=== PATIENT | female | born 1980 | race Caucasian/White ===

== ENCOUNTER 2020-04-07 17:28 | Observation (INO) | payer SELFPAY ==
[~2020-04-07] VITALS: Ht 175.3 cm; Wt 66.0 kg
[~2020-04-07 17:28] MED LIST: CEPHALEXIN500 MG PO; DOXYCYCL HYC100 MG PO; ULTRAM50 M1 PO
--- NOTE | 2020-04-07 17:38 | NUR ---
PT AMB TO ROOM WITH STEADY GAIT FOR TRIAGE
--- NOTE | 2020-04-07 17:45 | NUR ---
PT ASSESSED. PT AO X 3. SKIN PINK WARM AND DRY. REPORTS LOWER ABDOMINAL TENDERNESS FOR TWO DAYS. SMALL STOOL THIS MORNING. DENIES VOMITING AND DIARRHEA. ABD SOFT, TENDER TO PALPATION. ACTIVE BOWEL SOUNDS
--- NOTE | 2020-04-07 18:31 | NUR ---
DARYN PENA ATTEMPTING TO START IV AND DRAW LABS.
[2020-04-07 19:00] LABS: HEMATOCRIT 46.6 % (37.0-47.0); HEMOGLOBIN 15.7 g/dl (12.0-16.0); IMMATURE GRANULOCYTES 0.7 % (0.0-5.0); MEAN CELL VOLUME 86.1 fL CALC (80.0-100.0); MEAN CORPUSCULAR HGB CONC 33.7 g/dL CAL (32.0-36.0); NEUT# 16.77 thou/uL (2.00-7.15); RED BLOOD COUNT 5.41 mill/uL (4.20-5.60); RED CELL DISTRI WIDTH 12.2 % (11.5-15.5)
--- NOTE | 2020-04-07 19:07 | NUR ---
REPORT GIVEN TO SHANA SERNA
--- NOTE | 2020-04-07 19:13 | NUR ---
C/O NAUSEA. PROVIDER NOTIFIED.
[2020-04-07 19:27] LABS: ALBUMIN 4.6 g/dL (3.2-5.0); ALKALINE PHOSPHATASE 118 u/l (38-126); ANION GAP 15 (6-22 (CALC)); BILIRUBIN, TOTAL 1.5 mg/dL (0.0-1.4); BUN 16 mg/dL (7-17); BUN/CREATININE RATIO 26 (12-20 (CALC)); CARBON DIOXIDE 21 mmol/l (22-30); CHLORIDE 104 mmol/l (95-108); CREATININE 0.6 mg/dL (0.5-1.0); GFR > 60 ML/MIN (>=60 (CALC)); GFR FOR AFR.AMER. > 60 ML/MIN (>=60 (CALC)); LIPASE 17 u/l (23-300); POTASSIUM 4.2 mmol/l (3.5-5.1); SGOT/AST 36 u/l (14-36); SODIUM 137 mmol/l (137-146)
--- NOTE | 2020-04-07 19:31 | NUR ---
PT UP TO BR TO VOID...SAMPLE COLLECTED.
[2020-04-07 19:43] LABS: URINE BILIRUBIN - DIPSTICK NEGATIVE (NEGATIVE); URINE BLOOD DIPSTICK LARGE (NEGATIVE); URINE COLOR AMBER; URINE GLUCOSE - DIPSTICK NEGATIVE (NEGATIVE); URINE KETONE 15 mg/dL (NEGATIVE); URINE LEUK ESTERASE TRACE (NEGATIVE); URINE NITRITE - DIPSTICK POSITIVE (Negative); URINE PH 5.5 (4.5-8.0); URINE PROTEIN - DIPSTICK 100 mg/dL (NEG-TRACE); URINE SPECIFIC GRAVITY >=1.030
[2020-04-07 19:51] LABS: URINE RBC 50-100 RBC/hpf (0-5); URINE SQUAMOUS EPITHELIAL CELL FEW EPI/hpf (0-FEW)
--- NOTE | 2020-04-07 22:46 | NUR ---
DRINKING SECOND CUP OF CONTRAST.
--- NOTE | 2020-04-07 23:00 | NUR ---
PT RESTING. VSS. AWAITING DISPO. RESTING.
--- NOTE | 2020-04-08 01:30 | NUR ---
PT RETURNED. UP TO BR TO VOID. C/O PAIN 12/14. DR NOTIFIED.
--- NOTE | 2020-04-08 02:12 | NUR ---
AT BEDSIDE TO DISCUSS RESULTS.
[2020-04-08] MEDS ORDERED: KEFLEX500 M1 PO ×2 (02:14)
[2020-04-08] MEDS ORDERED: ONDANSETRON4 MG PO ×2 (02:14)
--- NOTE | 2020-04-08 02:17 | NUR ---
DR HICKEY AT BEDSIDE TO DISCUSS RESULTS OF CT.
--- NOTE | 2020-04-08 02:58 | NUR ---
REPORT TO JOHNNY NURSE/MED-SURG.
--- NOTE | 2020-04-08 03:00 | NUR ---
TO FLOOR VIA WHEELCHAIR. TOLERATED WELL. VSS. FLAGYL INFUSING VIA PUMP.
--- NOTE | 2020-04-08 03:09 | NUR ---
PT ARRIVED TO THE FLOOR VIA WC, ACCOMPANIED BY ED STAFF. PT AMULATED FROM WC TO BED. ASSESSMENT COMPLETED AND VS OBTAINED. RESPIRATIONS EVEN AND UNLABORED ON RA, LUNGS SOUND CLEAR. PEDAL PULSES ARE STRONG. PT DENIES ANY PAIN OR DISCOMFORT AT THIS TIME. PT ORIENTED TO ROOM AND CALL ASKEW SYSTEM AND PROVIDED WITH ICE WATER PER REQUEST. SAFETY PRECAUTIONS IN PLACE. WILL CONTINUE TO MONITOR.
[2020-04-08 03:33] VITALS: BP 90/56
--- NOTE | 2020-04-08 07:00 | NUR ---
REPORT RECEIVED FROM DAPHNE TURNER.
[2020-04-08 07:25] VITALS: BP 98/60
--- NOTE | 2020-04-08 07:25 | NUR ---
PT RESTING IN SEMI FOWLERS POSITION,A&O X3;INTRODUCED SELF TO PT AND POC DISCUSSED;VS OBTAINED AND ASSESSMENT COMPLETED;PT DENIES ANY CURRENT PAIN OR DISCOMFORTS,PAIN SCALE AND REPORTING EDUCATED;RESPIRATIONS EVEN AND UNLABORED ON RA,CLEAR LUNG SOUNDS;ABDOMEN SOFT ON PALPATION AND ACTIVE IN ALL 4 QUADRANTS;STRONG PEDAL PULSES;SKIN INTACT;#22G TO RIGHT HAND INFUSING NS @ 125ML/HR,SITE APPEARS HEALTHY;PT DENIES ANY ADDITIONAL NEEDS AT THIS TIME AND IS ENCOURAGED TO CALL FOR ASSISTANCE IF NEEDED;FALL PRECAUTIONS IN PLACE WITH BED IN THE LOWEST POSITION AND CALL LIGHT IN REACH;WILL CONTINUE TO MONITOR
[2020-04-08] MEDS ORDERED: CIPROFLOXACN500 MG PO (10:41)
[2020-04-08] MEDS ORDERED: FLORASTOR250 M1 PO (10:41)
--- NOTE | 2020-04-08 11:05 | NUR ---
ALL DISCHARGE INSTRUCTIONS PROVIDED AT THIS TIME;PT INSTRUCTED TO TAKE ABX DIRECTED, FOLLOW UP WITH PCP IN ONE WEEK AND MONITOR FOR ANY SIGNS OF INFECTION.RX FOR CIPRO AND FLORASTOR PROVIDED;PT DENIES ANY ADDITONAL QUESTIONS OR NEEDS;IV SITE REMOVED WITH CATHETER INTACT;WHEELCHAIR TO BE PROVIDED FOR D/C HOME;SIGNIFICANT OTHER TO TRANSPORT PT HOME;WILL CONTINUE TO MONITOR
--- NOTE | 2020-04-08 11:35 | NUR ---
WHILE ATTEMPTING TO CHECK ON PT AND STATUS OF TRANSPORTATION HOME, PT WAS NOT IN HER ROOM AND LEFT FACILITY WITHOUT NOTIFYING STAFF. Discharge instructions given. Patient verbalizes understanding of same. Discharged in stable condition via Ambulatory to Home with significant other. All belongings sent with pt.
== END 2020-04-08 11:35 | disposition home or self-care (01) | DRG 386 ==
LOC: ED 17:28 → ED-I 04-08 02:10 → ED 04-08 02:31 → MS2 04-08 02:32
PROVIDERS: ADMIT Internal Medicine; ATTEND Internal Medicine
DX: K50.10 Crohn's disease of large intestine without complications (principal); N39.0 Urinary tract infection, site not specified; N83.202 Unspecified ovarian cyst, left side; N83.201 Unspecified ovarian cyst, right side; F17.210 Nicotine dependence, cigarettes, uncomplicated; Z20.828 Contact with and (suspected) exposure to other viral communicable diseases
CPT/HCPCS: G0378; Q9967

== ENCOUNTER 2021-02-23 01:09 | Emergency (ER) | payer SELFPAY ==
[~2021-02-23] VITALS: Ht 175.3 cm; Wt 59.0 kg
[~2021-02-23 01:09] MED LIST changes: +CIPROFLOXACN500 MG PO; +FLORASTOR250 M1 PO; +KEFLEX500 M1 PO; +ONDANSETRON4 MG PO
[2021-02-23 01:42] LABS: URINE BILIRUBIN - DIPSTICK NEGATIVE (NEGATIVE); URINE BLOOD DIPSTICK MODERATE (NEGATIVE); URINE COLOR YELLOW; URINE GLUCOSE - DIPSTICK NEGATIVE (NEGATIVE); URINE KETONE NEGATIVE (NEGATIVE); URINE PROTEIN - DIPSTICK NEGATIVE (NEG-TRACE); URINE UROBILINOGEN - DIPSTICK 0.2 E.U./dL (0.2)
[2021-02-23 01:53] LABS: URINE BACTERIA FEW hpf; URINE LEUK ESTERASE SMALL (NEGATIVE); URINE NITRITE - DIPSTICK NEGATIVE (Negative); URINE SQUAMOUS EPITHELIAL CELL FEW EPI/hpf (0-FEW)
[2021-02-23] MEDS ORDERED: PYRIDIUM200 MG PO (01:57)
[2021-02-23] MEDS ORDERED: KEFLEX500 MG PO (01:57)
[2021-02-23 02:19] LABS: IMMATURE GRANULOCYTES 0.2 % (0.0-5.0); MEAN CORPUSCULAR HGB 22.4 pG CALC (26.0-32.0); MEAN CORPUSCULAR HGB CONC 30.6 g/dL CAL (32.0-36.0); NEUT# 4.33 thou/uL (2.00-7.15); RED BLOOD COUNT 4.6 mill/uL (4.20-5.60); RED CELL DISTRI WIDTH 15.1 % (11.5-15.5)
[2021-02-23 02:22] LABS: HEMATOCRIT 33.7 % (37.0-47.0); HEMOGLOBIN 10.3 g/dl (12.0-16.0); MEAN CELL VOLUME 73.3 fL CALC (80.0-100.0)
[2021-02-23 02:35] LABS: ALKALINE PHOSPHATASE 81 u/l (38-126); ANION GAP 13 (6-22 (CALC)); BUN 5 mg/dL (7-17); BUN/CREATININE RATIO 11 (12-20 (CALC)); CARBON DIOXIDE 22 mmol/l (22-30); CHLORIDE 106 mmol/l (95-108); CREATININE 0.5 mg/dL (0.5-1.0); GFR > 60 ML/MIN (>=60 (CALC)); GFR FOR AFR.AMER. > 60 ML/MIN (>=60 (CALC)); POTASSIUM 4.2 mmol/l (3.5-5.1); SGOT/AST 51 u/l (14-36); SODIUM 137 mmol/l (137-146)
[2021-02-23 02:39] LABS: ALBUMIN 3.5 g/dL (3.2-5.0); BILIRUBIN, TOTAL 0.3 mg/dL (0.0-1.4)
[2021-02-23 02:51] LABS: BETA-HCG, QUANT(RESULT NUMBER) 9 mIU/mL
[2021-02-23 03:19] VITALS: BP 122/62
== END 2021-02-23 03:20 | disposition home or self-care (01) | DRG 833 ==
LOC: ED 01:09
PROVIDERS: Emergency Medicine
DX: O23.40 Unspecified infection of urinary tract in pregnancy, unspecified trimester (principal); F17.210 Nicotine dependence, cigarettes, uncomplicated; Z3A.00 Weeks of gestation of pregnancy not specified

== ENCOUNTER 2022-02-27 09:17 | Emergency (ER) | payer SELFPAY ==
[~2022-02-27] VITALS: Ht 175.3 cm; Wt 44.1 kg
[2022-02-27] VITALS (32 sets, daily range): BP systolic 106–148; BP diastolic 67–92
[~2022-02-27 09:17] MED LIST changes: +KEFLEX500 MG PO; +PYRIDIUM200 MG PO
[2022-02-27] MEDS ORDERED: DESYREL50 MG PO (09:37)
[2022-02-27] MEDS ORDERED: BUPRENORPHIN8 MG SL (09:37)
[2022-02-27] MEDS ORDERED: LEXAPRO5 MG PO (09:38)
[2022-02-27] MEDS ORDERED: CLONIDINE0.1 MG PO (09:39)
[2022-02-27 09:55] LABS: URINE BILIRUBIN - DIPSTICK NEGATIVE (NEGATIVE); URINE BLOOD DIPSTICK LARGE (NEGATIVE); URINE GLUCOSE - DIPSTICK NEGATIVE (NEGATIVE); URINE KETONE NEGATIVE (NEGATIVE); URINE PROTEIN - DIPSTICK 100 mg/dL (NEG-TRACE); URINE UROBILINOGEN - DIPSTICK 0.2 E.U./dL (0.2)
[2022-02-27 09:56] LABS: URINE COLOR STRAW; URINE LEUK ESTERASE MODERATE (NEGATIVE); URINE NITRITE - DIPSTICK NEGATIVE (Negative)
[2022-02-27 10:04] LABS: URINE BACTERIA MANY hpf; URINE EPITHELIAL CELLS MODERATE EPI/hpf (0-FEW); URINE RBC 25-50 RBC/hpf (0-5); URINE WBC >100 WBC/hpf (0-5)
[2022-02-27 10:31] LABS: PROTHROMBIN TIME 10.9 SECONDS (9.0-12.5)
[2022-02-27 10:32] LABS: IMMATURE GRANULOCYTES 0.2 % (0.0-5.0); MEAN CORPUSCULAR HGB 15.5 pG CALC (26.0-32.0); MEAN CORPUSCULAR HGB CONC 26.3 g/dL CAL (32.0-36.0); NEUT# 13.9 thou/uL (2.00-7.15); RED BLOOD COUNT 4.06 mill/uL (4.20-5.60); RED CELL DISTRI WIDTH 19.2 % (11.5-15.5)
[2022-02-27 10:36] LABS: ALKALINE PHOSPHATASE 97 u/l (38-126); BILIRUBIN, TOTAL 0.2 mg/dL (0.0-1.4); BUN 24 mg/dL (7-17); BUN/CREATININE RATIO 18 (12-20 (CALC)); CARBON DIOXIDE 24 mmol/l (22-30); CHLORIDE 100 mmol/l (95-108); CREATININE 1.4 mg/dL (0.5-1.0); ETHYL ALCOHOL 0 mg/dl (0-30); GFR FOR AFR.AMER. 50 ML/MIN (>=60 (CALC)); GFR OTHER RACES 41 ML/MIN (>=60 (CALC)); LIPASE 29 u/l (23-300); POTASSIUM 3.8 mmol/l (3.5-5.1); SGOT/AST 14 u/l (14-36); TOTAL PROTEIN 6.4 g/dL (6.3-8.2)
[2022-02-27 10:43] LABS: HEMOGLOBIN 6.3 g/dl (12.0-16.0); MEAN CELL VOLUME 59.1 fL CALC (80.0-100.0)
[2022-02-27 10:44] LABS: ANION GAP 10 (6-22 (CALC)); SODIUM 130 mmol/l (137-146)
== END 2022-02-27 17:06 | disposition short-term general hospital (02) | DRG 760 ==
LOC: ED 09:17
PROVIDERS: Family Medicine
PROC: 30233N1 Transfusion of Nonautologous Red Blood Cells into Peripheral Vein, Percutaneous Approach (ICD-10-PCS; principal; 2022-02-27)
PROC: 02HV33Z Insertion of Infusion Device into Superior Vena Cava, Percutaneous Approach (ICD-10-PCS; 2022-02-27)
DX: N85.9 Noninflammatory disorder of uterus, unspecified (principal); N13.1 Hydronephrosis with ureteral stricture, not elsewhere classified; N39.0 Urinary tract infection, site not specified; D64.9 Anemia, unspecified; E83.52 Hypercalcemia; F17.210 Nicotine dependence, cigarettes, uncomplicated; Z20.822 Contact with and (suspected) exposure to COVID-19
CPT/HCPCS: P9016; Q9967

== ENCOUNTER 2022-03-12 04:02 | Emergency (ER) | payer SELFPAY ==
[~2022-03-12] VITALS: Ht 175.3 cm; Wt 45.5 kg
[~2022-03-12 04:02] MED LIST changes: +BUPRENORPHIN8 MG SL; +CLONIDINE0.1 MG PO; +DESYREL50 MG PO; +LEXAPRO5 MG PO
[2022-03-12 04:08] VITALS: BP 117/71
[2022-03-12 04:30] VITALS: BP 110/66
[2022-03-12 05:00] VITALS: BP 121/74
[2022-03-12 05:19] VITALS: BP 121/74
== END 2022-03-12 05:20 | disposition short-term general hospital (02) | DRG 700 ==
LOC: ED 04:02
DX: T83.022A Displacement of nephrostomy catheter, initial encounter (principal); Y83.3 Surgical operation with formation of external stoma as the cause of abnormal reaction of the patient, or of later complication, without mention of misadventure at the time of the procedure; N32.9 Bladder disorder, unspecified; F17.200 Nicotine dependence, unspecified, uncomplicated

== ENCOUNTER 2022-04-05 04:06 | Emergency (ER) | payer SELFPAY ==
[~2022-04-05] VITALS: Ht 175.3 cm; Wt 40.1 kg
[2022-04-05 04:15] VITALS: BP 101/65
[2022-04-05 04:30] VITALS: BP 106/75
[2022-04-05 04:45] VITALS: BP 110/77
[2022-04-05 05:00] VITALS: BP 108/79
[2022-04-05 05:10] VITALS: BP 108/79
== END 2022-04-05 05:10 | disposition short-term general hospital (02) | DRG 700 ==
LOC: ED 04:06
DX: T83.022A Displacement of nephrostomy catheter, initial encounter (principal); Y83.3 Surgical operation with formation of external stoma as the cause of abnormal reaction of the patient, or of later complication, without mention of misadventure at the time of the procedure; C53.9 Malignant neoplasm of cervix uteri, unspecified; F17.200 Nicotine dependence, unspecified, uncomplicated

== ENCOUNTER 2022-04-17 14:44 | Inpatient (IN) | payer MEDICAID ==
[~2022-04-17] VITALS: Ht 175.3 cm; Wt 43.0 kg
[2022-04-17] VITALS (14 sets, daily range): BP systolic 98–107; BP diastolic 54–66
[~2022-04-17 14:44] MED LIST changes: -BUPRENORPHIN8 MG SL; +SUBOXONE1 MI1 SL
--- NOTE | 2022-04-17 14:44 | NUR ---
PT TO ROOM VIA EMS
[2022-04-17 15:13] LABS: HEMATOCRIT 26.4 % (37.0-47.0); HEMOGLOBIN 8.1 g/dl (12.0-16.0); IMMATURE GRANULOCYTES 1.3 % (0.0-5.0); MEAN CORPUSCULAR HGB 25.3 pG CALC (26.0-32.0); MEAN CORPUSCULAR HGB CONC 30.7 g/dL CAL (32.0-36.0); NEUT# 5.77 thou/uL (2.00-7.15); RED BLOOD COUNT 3.2 mill/uL (4.20-5.60); RED CELL DISTRI WIDTH 22.3 % (11.5-15.5)
[2022-04-17 15:20] LABS: ALKALINE PHOSPHATASE 81 u/l (38-126); ANION GAP 10 (6-22 (CALC)); BUN 16 mg/dL (7-17); BUN/CREATININE RATIO 35 (12-20 (CALC)); CARBON DIOXIDE 20 mmol/l (22-30); CHLORIDE 107 mmol/l (95-108); CREATININE 0.5 mg/dL (0.5-1.0); GFR FOR AFR.AMER. > 60 ML/MIN (>=60 (CALC)); GFR OTHER RACES > 60 ML/MIN (>=60 (CALC)); POTASSIUM 3.8 mmol/l (3.5-5.1); SGOT/AST 13 u/l (14-36); SODIUM 133 mmol/l (137-146)
[2022-04-17 15:22] LABS: ALBUMIN 2.2 g/dL (3.2-5.0); BILIRUBIN, TOTAL 0.3 mg/dL (0.0-1.4); TOTAL PROTEIN 4.9 g/dL (6.3-8.2)
[2022-04-17 15:24] LABS: MEAN CELL VOLUME 82.5 fL CALC (80.0-100.0)
--- NOTE | 2022-04-17 15:45 | NUR ---
Reassessment of patient completed. No distress noted.
--- NOTE | 2022-04-17 16:45 | NUR ---
Reassessment of patient completed. No distress noted.
[2022-04-17] MEDS ORDERED: BACLOFEN10 MG PO (17:13)
[2022-04-17] MEDS ORDERED: BISACODYL10 M1 RE (17:14)
[2022-04-17] MEDS ORDERED: LEXAPRO10 MG PO (17:15)
[2022-04-17] MEDS ORDERED: CYCLOBENZAPRINE10 MG PO (17:15)
[2022-04-17] MEDS ORDERED: OXYCODO-APAP1 TA2 PO (17:16)
--- NOTE | 2022-04-17 17:45 | NUR ---
Reassessment of patient completed. No distress noted.
--- NOTE | 2022-04-17 17:59 | NUR ---
MEAL TRAY PROVIDED TO PATIENT PER MD ORDER.
--- NOTE | 2022-04-17 18:02 | NUR ---
PATIENT ESCORTED TO ROOM 279 VIA STRETCHER AND 2 RN'S. PATIENT IN NAD. BEDSIDE REPORT PROVIDED TO GOOD HUMOR VENDOR. VERBALIZED UNDERSTANDING.
--- NOTE | 2022-04-17 18:05 | NUR ---
PT ARRIVED VIA STRETCHER WITH LPN OR MEDICAL ASSISTANT PT A&OX3. PT HESITANT TO ANSWERING QUESTIONS. [address] LEFT AND RIGHT SHOWING CLEAR, YELLOW URINE. ORIENTATED PT TO ROOM/ CALL ASKEW LIGHT SYSTEM. TELE MONITOR IN PLACE, CONTINOUS MONITORING PER ED. IV: 18G EMS SITE. FLUSHED ON LFA.
--- NOTE | 2022-04-17 19:30 | NUR ---
PT IN BED EATING DINNER. NO S/S OF DISTRESS NOTED. DENIES PAIN AT THIS TIME. ADMISSION ASSESSMENT COMPLETED AT THIS TIME. PT HAS CERVICAL CANCER. RECEIVE HER FIRST CHEMPTHERAPY THE PREVIUS DAY. PT SEEM UNDER WEIGHT. HAS 2 NEPHROSTOMY TUBES. HAS A UNACCESSED PORT TO RIGHT CHEST. STOMACH IS MILD DISTENDED. EDEMA NOTED ON BLE +4. PT HAS A 18G IN TO LAC PATENT AND FLUSHES WELL. CALL LIGHT IN REACH BED IN LOWEST POSITION. CONTINUE TO MONITOR.
[2022-04-18 00:09] VITALS: BP 109/68
--- NOTE | 2022-04-18 00:30 | NUR ---
PT IN BED RESTING WITH EYES CLOSED BREATHING EVEN AND UNLABORED. NO S/S OF DISTRESS NOTED. URINE SAMPLE OPTAIN FOR UA. CALL LIGHT IN REAC AND BED IN LOWEST POSITION. CONTINUE TO MONITOR.
[2022-04-18 00:53] LABS: URINE BILIRUBIN - DIPSTICK NEGATIVE (NEGATIVE); URINE BLOOD DIPSTICK LARGE (NEGATIVE); URINE COLOR YELLOW; URINE GLUCOSE - DIPSTICK NEGATIVE (NEGATIVE); URINE KETONE NEGATIVE (NEGATIVE); URINE LEUK ESTERASE NEGATIVE (NEGATIVE); URINE PH 6.5 (4.5-8.0); URINE PROTEIN - DIPSTICK 30 mg/dL (NEG-TRACE)
[2022-04-18 00:56] LABS: URINE NITRITE - DIPSTICK NEGATIVE (Negative)
[2022-04-18 00:59] LABS: URINE SQUAMOUS EPITHELIAL CELL FEW EPI/hpf (0-FEW)
[2022-04-18 01:00] LABS: URINE BACTERIA MODERATE hpf; URINE CALCIUM OXALATE CRYSTALS FEW lpf; URINE RBC 25-50 RBC/hpf (0-5)
--- NOTE | 2022-04-18 04:35 | NUR ---
PT IN BED RESTING. NO S/S OF DISTRESS NOTED. PT REPORTS PAIN 01/14. PT MEDICATED PER OCT. NO OTHER CONCERN OR NEEDS VOICED. CALL LIGHT IN REACH AND BED IN LOWEST POSITION.
[2022-04-18 06:52] VITALS: BP 99/62
--- NOTE | 2022-04-18 07:21 | NUR ---
notified nurse about low BP.
--- NOTE | 2022-04-18 09:00 | NUR ---
Patient Alert and oriented x4 laying comfortably in bed. Call light within reach, bed in lowest position. Patient educated on fall prevention and importance of call light. Vitals WNL. Rounds performed with Nurse practitioner. Patient voices no complaints or concerns at this time. Will continue to monitor.
[2022-04-18 10:57] VITALS: BP 98/63
--- NOTE | 2022-04-18 12:00 | NUR ---
Patient breif changed, nephro tubes emptied, fall precautions in place, vitals WNL, patient voices no complaints or concerns at this time. Will continue to monitor.
[2022-04-18 13:17] LABS: HEMATOCRIT 26.1 % (37.0-47.0); HEMOGLOBIN 8.3 g/dl (12.0-16.0); MEAN CELL VOLUME 81.6 fL CALC (80.0-100.0); MEAN CORPUSCULAR HGB 25.9 pG CALC (26.0-32.0); MEAN CORPUSCULAR HGB CONC 31.8 g/dL CAL (32.0-36.0); RED BLOOD COUNT 3.2 mill/uL (4.20-5.60); RED CELL DISTRI WIDTH 21.9 % (11.5-15.5)
[2022-04-18 13:40] LABS: ANION GAP 12 (6-22 (CALC)); BUN 13 mg/dL (7-17); BUN/CREATININE RATIO 32 (12-20 (CALC)); CARBON DIOXIDE 21 mmol/l (22-30); CHLORIDE 105 mmol/l (95-108); CREATININE 0.4 mg/dL (0.5-1.0); GFR FOR AFR.AMER. > 60 ML/MIN (>=60 (CALC)); GFR OTHER RACES > 60 ML/MIN (>=60 (CALC)); SODIUM 134 mmol/l (137-146)
[2022-04-18 14:30] VITALS: BP 110/74
--- NOTE | 2022-04-18 17:13 | NUR ---
Patient resting in bed, no s/s of distress.
[2022-04-18 17:55] VITALS: BP 103/65
[2022-04-18 18:59] VITALS: BP 102/65
--- NOTE | 2022-04-18 20:07 | NUR ---
ASSEMENT COMPLTED AT THIS TIME. PATIENT VERY THIN, BONY PREMANACES SHOWING. CURRENTLY UNDERGPOING TREATMENT FOR CERVICAL CANCER, R PORT NOT ACCESSED, DRY MOUTH NOTED, NO OPEN SORES. PROVIDED UPDATE ON PLAN OF CARE. CALL LIGHT AND BEDSIDE TABLE WITHIN REACH.
--- NOTE | 2022-04-18 23:55 | NUR ---
PATIENT SITTING UP IN BED WATCHING TV. DENIES ANY CURRENT NEEDS, CALL LIGHT AND BEDSIDE TABLE WITHIN REACH.
--- NOTE | 2022-04-19 00:19 | NUR ---
PATIENT CLEANED UP WITH ASSITANCE BY WRITTER. MEDICATED FOR PAIN 01/14
[2022-04-19 00:21] VITALS: BP 107/67
--- NOTE | 2022-04-19 04:15 | NUR ---
PATIENT WASHED UP BY BENEFITS CLERK E NOTT.
[2022-04-19 04:29] VITALS: BP 106/70
--- NOTE | 2022-04-19 05:33 | NUR ---
PATIENT REFUSES TO WEAR NON SKID SOCKS, STATES THEY ARE UNCOMFORTABLY ON HER SWOLLEN FEET.
[2022-04-19 05:34] LABS: HEMOGLOBIN 8.3 g/dl (12.0-16.0); IMMATURE GRANULOCYTES 0.7 % (0.0-5.0); MEAN CORPUSCULAR HGB 25.9 pG CALC (26.0-32.0); MEAN CORPUSCULAR HGB CONC 31.9 g/dL CAL (32.0-36.0); NEUT# 3.98 thou/uL (2.00-7.15); RED BLOOD COUNT 3.21 mill/uL (4.20-5.60); RED CELL DISTRI WIDTH 22.1 % (11.5-15.5)
[2022-04-19 05:45] LABS: ANION GAP 9 (6-22 (CALC)); BUN 12 mg/dL (7-17); BUN/CREATININE RATIO 31 (12-20 (CALC)); CARBON DIOXIDE 23 mmol/l (22-30); CHLORIDE 105 mmol/l (95-108); CREATININE 0.4 mg/dL (0.5-1.0); GFR FOR AFR.AMER. > 60 ML/MIN (>=60 (CALC)); GFR OTHER RACES > 60 ML/MIN (>=60 (CALC)); POTASSIUM 4.2 mmol/l (3.5-5.1); SODIUM 133 mmol/l (137-146)
[2022-04-19 05:51] LABS: MAGNESIUM 1.9 mg/dL (1.6-2.3)
[2022-04-19 07:24] VITALS: BP 107/66
--- NOTE | 2022-04-19 08:00 | NUR ---
PT IN BED A/O X3, NO DISTRESS NOTED, PT ON RA RESP NON-LABORED, PT WEAK, VS STABLE, BED ALARM ON AND IN LOW POSITION CALL LIGHT IN REACH
[2022-04-19 11:29] VITALS: BP 103/67
[2022-04-19 16:16] VITALS: BP 122/74
[2022-04-19 18:54] VITALS: BP 98/67
--- NOTE | 2022-04-19 19:15 | NUR ---
REPORT RECEIVED FROM Rosalind JONES RN
--- NOTE | 2022-04-19 20:30 | NUR ---
ASSEMENT CVOMPLETED AT THIS TIME.
[2022-04-20] VITALS (7 sets, daily range): BP systolic 105–125; BP diastolic 69–77
--- NOTE | 2022-04-20 00:28 | NUR ---
TYLENOL GIVEN FOR PELVIC PAIN 10/14. CALL LIGHT AND BEDSIDE TABLE WITHIN REACH.
--- NOTE | 2022-04-20 04:10 | NUR ---
PATIENT CLEANED UP AT THIS TIME. COPIOUS AMOUNT OF VAGINAL DRAINAGE NOTED, FOUL SMELL AND GREEN TINGE. PER PATIENT THIS IS HER NEW "NORMAL". VICK CARE PROVIDED. PATIENT ABLE TO EMPTY OWN NEPHROSTOMY BAGS AND HAS SO ALREADY. CALL LIGHT AND BEDSDIE TABLE WITHIN REACH.
[2022-04-20 05:58] LABS: IMMATURE GRANULOCYTES 0.7 % (0.0-5.0); MEAN CELL VOLUME 81.4 fL CALC (80.0-100.0); MEAN CORPUSCULAR HGB 26.1 pG CALC (26.0-32.0); NEUT# 3.9 thou/uL (2.00-7.15); RED BLOOD COUNT 3.07 mill/uL (4.20-5.60); RED CELL DISTRI WIDTH 22.1 % (11.5-15.5)
[2022-04-20 06:10] LABS: ALBUMIN 2.1 g/dL (3.2-5.0); ALKALINE PHOSPHATASE 98 u/l (38-126); ANION GAP 10 (6-22 (CALC)); BILIRUBIN, TOTAL 0.2 mg/dL (0.0-1.4); BUN 10 mg/dL (7-17); BUN/CREATININE RATIO 26 (12-20 (CALC)); CARBON DIOXIDE 22 mmol/l (22-30); CHLORIDE 104 mmol/l (95-108); CREATININE 0.4 mg/dL (0.5-1.0); GFR FOR AFR.AMER. > 60 ML/MIN (>=60 (CALC)); GFR OTHER RACES > 60 ML/MIN (>=60 (CALC)); MAGNESIUM 1.7 mg/dL (1.6-2.3); POTASSIUM 4.4 mmol/l (3.5-5.1); SGOT/AST 10 u/l (14-36); SODIUM 132 mmol/l (137-146); TOTAL PROTEIN 4.7 g/dL (6.3-8.2)
--- NOTE | 2022-04-20 08:50 | NUR ---
PT RESTING IN HIGH FOWLERS POSITION. A/OX3 ASSESSMENT AND VS COMPLETED. HEART RHYTHM ON TELE RESPIRATIONS UNLABORED. BOWEL SOUNDS HYPOACTIVE, IV SITE TO RIGHT WRIST FLUSHED . PT C/O PAIN MEDICATED PER EMAR. PT REQUESTED JUICE. ARTURO PROVIDED .EDUCATED THE IMPORTANCE OF EATING DAILY MEALS. PT STATED UNDERSTANDING. ALL SAFETY PRECAUTIONS IN PLACE WITH CALL LIGHT IN REACH.
--- NOTE | 2022-04-20 12:24 | NUR ---
PT RESTING IN HIGH FOWLERS POSITION. PT DENIES ADDITIONAL NEEDS AT THE TIME ALL SAFETY PRECAUTIONS IN PLACE WITH CALL LIGHT IN REACH.
--- NOTE | 2022-04-20 16:25 | NUR ---
PT RESTING IN HIGH FOWLERS POSITION PT DENIES ADDITIONAL NEEDS AT THE TIME ALL SAFETY PRECAUTIONS IN PLACE
--- NOTE | 2022-04-20 19:20 | NUR ---
REPORT RECEIVED FROM Marifer CLANCY LPN
--- NOTE | 2022-04-20 19:46 | NUR ---
ASSEMENT COMPLETED AT THIS TIME.
--- NOTE | 2022-04-20 22:30 | NUR ---
PATIENT REPORTS HAVING AN INCREASE IN BLOODY DISCAHRGE. NOTIFIED. CBCB ORDERED.
[2022-04-21 05:28] VITALS: BP 116/74
--- NOTE | 2022-04-21 05:33 | NUR ---
PATIENT RESTING COMFORTABLY, NO APPARENT DISTRESS, CALL LIGHT AND BEDSIDE TABLE WITHN RECH.
[2022-04-21 06:34] LABS: HEMATOCRIT 25.8 % (37.0-47.0); HEMOGLOBIN 8.2 g/dl (12.0-16.0); IMMATURE GRANULOCYTES 1.1 % (0.0-5.0); MEAN CELL VOLUME 80.9 fL CALC (80.0-100.0); MEAN CORPUSCULAR HGB 25.7 pG CALC (26.0-32.0); MEAN CORPUSCULAR HGB CONC 31.8 g/dL CAL (32.0-36.0); NEUT# 4.15 thou/uL (2.00-7.15); RED BLOOD COUNT 3.19 mill/uL (4.20-5.60); RED CELL DISTRI WIDTH 21.8 % (11.5-15.5)
--- NOTE | 2022-04-21 06:47 | NUR ---
PATIENT TEMPERATURE REASSESED. 97.5
[2022-04-21 06:48] LABS: ALBUMIN 2.1 g/dL (3.2-5.0); ALKALINE PHOSPHATASE 102 u/l (38-126); ANION GAP 9 (6-22 (CALC)); BILIRUBIN, TOTAL 0.2 mg/dL (0.0-1.4); BUN 11 mg/dL (7-17); BUN/CREATININE RATIO 30 (12-20 (CALC)); CARBON DIOXIDE 25 mmol/l (22-30); CHLORIDE 103 mmol/l (95-108); CREATININE 0.4 mg/dL (0.5-1.0); GFR FOR AFR.AMER. > 60 ML/MIN (>=60 (CALC)); GFR OTHER RACES > 60 ML/MIN (>=60 (CALC)); MAGNESIUM 1.6 mg/dL (1.6-2.3); POTASSIUM 4.5 mmol/l (3.5-5.1); SGOT/AST 13 u/l (14-36); SODIUM 132 mmol/l (137-146); TOTAL PROTEIN 4.5 g/dL (6.3-8.2)
[2022-04-21 06:54] VITALS: BP 115/75
--- NOTE | 2022-04-21 08:45 | NUR ---
PT RESTING IN LOW FOWLERS POSITION, PT A/OX3 ASSESSMENT AND VS COMPLETED. HEART RHYTHM ON TELE. RESPIRAITONS UNLABORED. BOWEL SOUNDS HYPOACTIVE. IV SITE TO RFA NOTED. PT C/O PAIN TO BE MEDICATED PER EMAR. UROSTOMY BAGS NOTED. PTEATIGN BREAKFAST AT OWN PACE. ALL SAFETY PRECAUTIONS IN PLACE WITH CALLLIGHT IN REACH.
[2022-04-21 10:39] VITALS: BP 124/81
--- NOTE | 2022-04-21 11:27 | NUR ---
Attempted treatment x2 this am at 1015 she was eating breakfast stated she got a late start and not up to it now. Returned at this time, pt sound asleep. No treatment given.
--- NOTE | 2022-04-21 12:01 | NUR ---
PT DENIES ADDITIONAL NEEDS AT THE TIME ALL SAFETYPRECAUTIONS IN PLACE.
[2022-04-21 15:35] VITALS: BP 111/70
--- NOTE | 2022-04-21 15:59 | NUR ---
PT DENIES ADDITIOONAL NEEDS AT THE TIME PT REQUESTED ICED WATER .ICED WATER PROVIDED. PT MEDICATED PER EMAR PER PAIN.
[2022-04-21 19:32] VITALS: BP 115/72
[2022-04-22] VITALS (9 sets, daily range): BP systolic 102–117; BP diastolic 68–73
[2022-04-22 06:18] LABS: HEMATOCRIT 25.7 % (37.0-47.0); HEMOGLOBIN 8.2 g/dl (12.0-16.0); MEAN CELL VOLUME 81.3 fL CALC (80.0-100.0); MEAN CORPUSCULAR HGB 25.9 pG CALC (26.0-32.0); MEAN CORPUSCULAR HGB CONC 31.9 g/dL CAL (32.0-36.0); RED BLOOD COUNT 3.16 mill/uL (4.20-5.60); RED CELL DISTRI WIDTH 21.8 % (11.5-15.5)
[2022-04-22 06:26] LABS: ALKALINE PHOSPHATASE 96 u/l (38-126); ANION GAP 8 (6-22 (CALC)); BUN 14 mg/dL (7-17); BUN/CREATININE RATIO 28 (12-20 (CALC)); CARBON DIOXIDE 25 mmol/l (22-30); CHLORIDE 103 mmol/l (95-108); CREATININE 0.5 mg/dL (0.5-1.0); GFR FOR AFR.AMER. > 60 ML/MIN (>=60 (CALC)); GFR OTHER RACES > 60 ML/MIN (>=60 (CALC)); MAGNESIUM 1.6 mg/dL (1.6-2.3); POTASSIUM 4.6 mmol/l (3.5-5.1); SGOT/AST 9 u/l (14-36); SODIUM 132 mmol/l (137-146); TOTAL PROTEIN 4.2 g/dL (6.3-8.2)
[2022-04-22 06:39] LABS: BILIRUBIN, TOTAL 0.1 mg/dL (0.0-1.4)
--- NOTE | 2022-04-22 08:20 | NUR ---
PT LYING ON BED: A&0 X3. EVEN AND UNLABORED RESPIRATIONS; CLEAR LUNG SOUNDS UPON AUSCULTATION. TELEMETRY IN PLACE. IV SITE HEALTHY AND PATENT. UROSTOMY TUBES IN PLACE WITH CLEAR, YELLOW URINE. SAFETY PRECAUTIONS IN PLACE WITH CALL LIGHT IN REACH.
--- NOTE | 2022-04-22 12:10 | NUR ---
PT RESTING WITH EYES CLOSED. NO DISTRESS OR PAIN NOTED. NO NEEDS AT THIS TIME. SAFETY PRECAUTIONS IN PLACE WITH CALL LIGHT IN REACH.
--- NOTE | 2022-04-22 13:30 | NUR ---
RECEIVED CALL FROM [facility]: SAYING PT SUPPOSED TO HAVE CHEMO TODAY @ [facility] IN [place]; CASE MANAGEMENT AND DR. RICHTER NOTIFIED OF SAME.
--- NOTE | 2022-04-22 15:54 | NUR ---
PT LYING ON BED WATCHING TV. PT C/O ABDOMINAL PAIN AND ANEL LOWER EXTREMITIES, LEVEL 7/10, ADMINISTERED PAIN MED PER EMAR. IV SITE HEALTHY AND PATENT. BILARERAL UROSTOMY BAGS IN PLACE. SAFETY PRECAUTIONS IN PLACE WITH CALL LIGHT IN REACH.
[2022-04-23] VITALS (8 sets, daily range): BP systolic 107–142; BP diastolic 67–75
--- NOTE | 2022-04-23 06:55 | NUR ---
RECEIVED REPORT FROM DAPHNE GODOY.
--- NOTE | 2022-04-23 08:30 | NUR ---
PT ON BED SITTING ON LOW FOWLERS; A&O X3. VS AND ASSESSMENT COMPLETED. EVEN AND UNLABORED RESPIRATIONS ON PRINCESS. TELEMETRY IN PLACE. IV SITE FLUSHED: #24 LF FOREARM, HEALTHY AND PATENT. ANEL UROSTOMY TUBES IN PLACE WITH CLEAR YELLOW URINE. SAFETY PRECAUTIONS IN PLACE WITH CALL LIGTH IN REACH.
--- NOTE | 2022-04-23 09:30 | NUR ---
PT C/O ABDOMINAL PAIN AND ANEL LEGS LEVEL 7/10; ADMINISTERED PAIN MED PER EMAR. SAFETY PRECAUTIONS IN PLACE WITH CALL LIGHT IN REACH.
--- NOTE | 2022-04-23 12:35 | NUR ---
PT LYING ON BED WITH EYES CLOSED. NO DISTRESS OR PAIN NOTED. NO NEEDS AT THIS TIME. SAFETY PRECAUTIONS IN PLACE WITH CALL LIGHT IN REACH.
--- NOTE | 2022-04-23 15:45 | NUR ---
PT SITTING ON BED HIGH FOWLERS. PT C/O ABDOMINAL PAIN AND ANEL LEGS, LEVEL 7/10: ADMINISTERED PAIN MEDICATION PER EMAR. ORANGE JUICE PROVEIDED PER PT REQUEST. UROSTOMY TUBES IN PLACE WITH CLEAR, YELLOW URINE. IV SITE HEALTHY AND PATENT. SAFETY PRECAUTIONS IN PLACE WITH CALL LIGHT IN REACH.
--- NOTE | 2022-04-23 20:30 | NUR ---
PT RESTING IN BED WATCHING. NO S/S OF DISTRESS NOTED. ASSESMENT COMPLETED. PT HAS A 24G IV TO LFA SL PATENT AND FLUSHES WELL. CALL LIGHT IN REACH AND BED IN LOWEST POSITION. CINTINUE TO MONITOR.
[2022-04-24 00:02] VITALS: BP 123/76
--- NOTE | 2022-04-24 00:35 | NUR ---
PT IN BED RESTING WITH EYES CLOSED BREATHING EVEN AND UNLABORED. NO S/S OF DISTRESS NOTED. CALL LIGHT IN REACH AND BED IN LOWEST POSITION.
[2022-04-24 04:25] VITALS: BP 106/72
--- NOTE | 2022-04-24 04:40 | NUR ---
PT IN BED WATCHING TV, NO S/S OF DISTRESS NOTED. PT REPORTS PAIN TO ABD. AND LEGS 03/16. PT. MEDICATED PER OCT. CALL LIGHT IN REACH AND BED IN LOWEST POSITION.
[2022-04-24 05:24] LABS: HEMATOCRIT 26.1 % (37.0-47.0); HEMOGLOBIN 8.3 g/dl (12.0-16.0); IMMATURE GRANULOCYTES 1.2 % (0.0-5.0); MEAN CELL VOLUME 83.7 fL CALC (80.0-100.0); MEAN CORPUSCULAR HGB 26.6 pG CALC (26.0-32.0); MEAN CORPUSCULAR HGB CONC 31.8 g/dL CAL (32.0-36.0); NEUT# 8.66 thou/uL (2.00-7.15); RED BLOOD COUNT 3.12 mill/uL (4.20-5.60); RED CELL DISTRI WIDTH 22.1 % (11.5-15.5)
[2022-04-24 06:14] LABS: ANION GAP 11 (6-22 (CALC)); BUN 13 mg/dL (7-17); BUN/CREATININE RATIO 22 (12-20 (CALC)); CARBON DIOXIDE 26 mmol/l (22-30); CHLORIDE 97 mmol/l (95-108); CREATININE 0.6 mg/dL (0.5-1.0); GFR FOR AFR.AMER. > 60 ML/MIN (>=60 (CALC)); GFR OTHER RACES > 60 ML/MIN (>=60 (CALC)); MAGNESIUM 1.5 mg/dL (1.6-2.3); POTASSIUM 4.6 mmol/l (3.5-5.1); SODIUM 129 mmol/l (137-146)
--- NOTE | 2022-04-24 06:50 | NUR ---
RECEIVED REPORT FROM SANTY SPRAGUE.
[2022-04-24 07:14] VITALS: BP 107/68
--- NOTE | 2022-04-24 08:10 | NUR ---
PT SITTING ON BED LOW FOWLERS POSITION; A&O X3. VS AND ASSESSMENT COMPLETED. EVEN AND UNLABORED RESPIRATIONS; CLEAR LUNG SOUNDS UPON AUSCULTATION. TELEMETRY IN PLACE WITH LAST READING SR-75. IV SITE HEALTHY AND PATENT. HYPOACTIVE BOWEL SOUNDS X4 QUADRANTS. ANEL NEPHROSTOMY IN PLACE, WITH CLEAR YELLOW URINE. SAFETY PRECAUTIONS IN PLACE WITH CALL LIGHT IN REACH.
--- NOTE | 2022-04-24 12:40 | NUR ---
PT C/O ABDOMINAL PAIN AND ANEL LEGS PAIN, LEVEL 7/10; ADMINISTERED PAIN MED PER EMAR. DRESSING CHANGED ON BILATERAL NEPHROSTOMY: CDI. CLEANED NINFA HOSE STOCKINGS PROVIDED. SAFETY PRECAUTIONS IN PLACE WITH CALL LIGHT IN REACH.
--- NOTE | 2022-04-24 15:30 | NUR ---
Patient up to chair to wash up. Patient called after washing her hair and stated she was tired and wanted to lay down, helped patient back to bed and patient stated she would finish washing up tonight or in the morning.
[2022-04-24 16:06] VITALS: BP 122/81
--- NOTE | 2022-04-24 16:35 | NUR ---
PT LYING ON BED WATCHING TV. PT REQUESTED TYLENOL: PT C/O PAIN ABDOMINAL PAIN AND ANEL LEGS LEVEL 7/10; ADMINISTERED TYLENOL PER EMAR. APPLE JUICE PROVIDED PER PT'S REQUEST. IV SITE FLUSHED: #24 LF FOREARM, HEALTHY AND PATENT. ANEL NEPHROSTOMY IN PLACE WITH CLEAR, YELLOW URINE. SAFETY PRECAUTIONS IN PLACE WITH CALL LIGHT IN REACH.
[2022-04-24 19:53] VITALS: BP 115/75
--- NOTE | 2022-04-24 20:55 | NUR ---
PT IN BED WATCHING TV. PT REPORTS PAIN TO BACK AND LEGS. PT MEDICATED PER MAR ASSESSMENT COMPLETED. NO S/S OF DISTRESS NOTED. CALL LIGHT IN REACH AND BED IN LOWEST POSITION.
[2022-04-25 00:18] VITALS: BP 103/73
--- NOTE | 2022-04-25 00:55 | NUR ---
PT IN BED RESTING WITH EYES CLOSED BREATHING EVEN AND UNLABORED, NO S/S OF DISTRESS NOTED. CALL LIGHT IN REACH AND BED IN LOWEST POSITION.
--- NOTE | 2022-04-25 04:35 | NUR ---
PT IN BED RESTING WATCHING TV. PT REPORTS PAIN TO BILATELAL LEG. PT MEDICATED PER MAR. S/S OF DISTRESS NOTED. CALL LIGHT IN REACH AND BED IN LOWEST POSITION.
[2022-04-25 05:11] VITALS: BP 150/93
[2022-04-25 06:46] VITALS: BP 117/64
--- NOTE | 2022-04-25 08:07 | NUR ---
PT IN BED WATCHING TV. PT REPORTS PAIN TO LOWER BACK AND LEGS PATIENT MEDICATED PER MAR. ASSESMENT COMPLETED. PT HAS A 24G IV TO LAC PATENT AND FLUSHES WELL. ON TELE. CALL LIGHT IN REACH AND BED IN LOWEST POSITION.
--- NOTE | 2022-04-25 08:30 | NUR ---
PT RESTING IN BED. ASSESSMENT PERFORMED. IV PATENT/FLUSHED. UPDATED PT ON CURRENT POC. TELE MONITOR IN PLACE. CONTINOUS MONITORING PER ED. NO QUESTIONS/CONCERNS AT THIS TIME. FALL/SAFTEYT PRECAUTION IN PLACE, CALL LIGHT WITHIN REACH.
--- NOTE | 2022-04-25 10:50 | NUR ---
/DRINK MIXER AT BEDSIDE
--- NOTE | 2022-04-25 11:25 | NUR ---
PATIENT STATES PAIN IN ABDOMINAL AREA 02/13. MEDICATED SEE EMAR. FALL/SAFTEY PRECAUTION IN PLACE. CALL LIGHT WITHIN REACH.
[2022-04-25 14:48] VITALS: BP 136/73
--- NOTE | 2022-04-25 15:54 | NUR ---
PT COMPLAINED OF HEADACHE AND LEG PAIN. MEDICATED SEE EMAR. STATES NO OTHER NEEDS AT THIS TIME. FALL/SAFTEY PRECAUTION IN PLACE. CALL LIGHT WITHIN REACH
--- NOTE | 2022-04-25 17:11 | NUR ---
PT REPOSITIONED IN BED . PT STATES HEADACHE HAS SUBSIDED. NO DISTRESS NOTED FALL/SAFTEY PRECAUTION IN PLACE. CALL LIGHT WITHIN REACH
[2022-04-25 18:36] VITALS: BP 99/73
[2022-04-26 00:16] VITALS: BP 125/80
[2022-04-26 04:49] VITALS: BP 116/75
[2022-04-26 06:15] LABS: ALBUMIN 2.4 g/dL (3.2-5.0); ALKALINE PHOSPHATASE 143 u/l (38-126); ANION GAP 9 (6-22 (CALC)); BUN 14 mg/dL (7-17); BUN/CREATININE RATIO 23 (12-20 (CALC)); CARBON DIOXIDE 28 mmol/l (22-30); CHLORIDE 97 mmol/l (95-108); CREATININE 0.6 mg/dL (0.5-1.0); GFR FOR AFR.AMER. > 60 ML/MIN (>=60 (CALC)); GFR OTHER RACES > 60 ML/MIN (>=60 (CALC)); POTASSIUM 4.5 mmol/l (3.5-5.1); SODIUM 130 mmol/l (137-146)
[2022-04-26 06:17] LABS: BILIRUBIN, TOTAL 0.2 mg/dL (0.0-1.4); MAGNESIUM 2.1 mg/dL (1.6-2.3); SGOT/AST 18 u/l (14-36); TOTAL PROTEIN 5.5 g/dL (6.3-8.2)
[2022-04-26 06:49] VITALS: BP 116/82
--- NOTE | 2022-04-26 09:59 | NUR ---
PT RESTING IN BED WATCHIN TV. ASSESSMENT COMPLETED. TELE MONITOR IN PLACE, CONTINOUS MONITORING PER ED. NEPHROSTOMY TUBES IN PLACE LEFT AND RIGHT SHOWING DARK YELLOW URINE. UPDATED PT ON CURRENT POC. STATES NO QUESTIONS/ CONCERNS AT THIS TIME. FALL/SAFTEY PRECAUTION IN PLACE. CALL LIGHT WITHIN REACH
[2022-04-26 10:44] VITALS: BP 108/77
--- NOTE | 2022-04-26 11:00 | NUR ---
Attempted treatment at 9am but pt was not ready for therapy at this time, refused.
--- NOTE | 2022-04-26 12:45 | NUR ---
CULTURE/SMEAR RETRIEVED SENT TO LAB.
[2022-04-26 16:03] VITALS: BP 110/77
--- NOTE | 2022-04-26 16:45 | NUR ---
PORT ACCESSED WITH PRODUCT DEVELOPMENT TECHNICIAN. PT TOLERATED WELL. FALL/SAFTEY PRECAUTION IN PLACE, CALL LIGHT WITHIN REACH.
--- NOTE | 2022-04-26 17:10 | NUR ---
PT TRANSPORTED TO CT WITH PRINT [employer]OP MANAGER DAYSHIFT VIA WC
--- NOTE | 2022-04-26 18:18 | NUR ---
PT ARRIVED BACK TO MED SURGE FLOOR WITH VOCAL TEACHER JAVA TECH. REORIENTATED PT BACK TO ROOM AND CALL ASKEW LIGHT SYSTEM. FALL/SAFTEY PRECAUTION IN PLACE. CALL LIGHT WITHIN REACH
[2022-04-26 19:01] VITALS: BP 114/79
--- NOTE | 2022-04-26 23:40 | NUR ---
PATIENT RESTING IN BED-C/O LEFT CHEST AND LEFT ARM PAIN-5/10-MEDICATED WITH LORTAB 5/325MG PO. PATIENT IS ALERTAND ORIENTEDX3. NEURO CHECK IS WNL. TELE MONITOR IN PLACE. SALINE LOCK TO RAC INTACT. SAFETY PRECAUTIONS REINFORCED. CALL LIGHT IN REACH. WILL CONT TO MONITOR.
[2022-04-27] VITALS (7 sets, daily range): BP systolic 100–122; BP diastolic 65–77
--- NOTE | 2022-04-27 05:43 | NUR ---
PATIENT HAS SEVERE BLOCKAGE IN SMALL BOWEL. NG TUBE PLACED AT SLOW AND INTERMITTENT SUCTION. 1200 ML IN OUTPUT SURGERY CONSULT IN AM
--- NOTE | 2022-04-27 10:39 | NUR ---
Pt in bed with NG tube in place, eyes closed, responds to questions barely. Not up to therapy at this time. Nursing/HEALTH NURSE aware.
--- NOTE | 2022-04-27 13:40 | NUR ---
OT attempeted to provide intervention. Pt not feeling up to participating. Discussed pt's status with nursing.
--- NOTE | 2022-04-27 15:16 | NUR ---
PATIENT TRANSFERRED TO [facility] AT 1510. NURSE REPORT GIVEN TO SHAISTA ON ONCOLOGY FLOOR AT 1524
== END 2022-04-27 15:09 | disposition short-term general hospital (02) | DRG 755 ==
LOC: ED 14:44 → ED-I 16:00 → ED 16:36 → MS2 16:37
PROVIDERS: Family Medicine; Internal Medicine; Nurse Practitioner; ADMIT Internal Medicine; ATTEND Internal Medicine
DX: C53.9 Malignant neoplasm of cervix uteri, unspecified (principal); Z68.1 Body mass index [BMI] 19.9 or less, adult; T83.512A Infection and inflammatory reaction due to nephrostomy catheter, initial encounter; R64 Cachexia; N13.30 Unspecified hydronephrosis; K56.7 Ileus, unspecified; C78.7 Secondary malignant neoplasm of liver and intrahepatic bile duct; C79.11 Secondary malignant neoplasm of bladder; G89.3 Neoplasm related pain (acute) (chronic); R63.0 Anorexia; R53.81 Other malaise; R63.6 Underweight; R62.7 Adult failure to thrive; D50.9 Iron deficiency anemia, unspecified; K59.00 Constipation, unspecified; F17.200 Nicotine dependence, unspecified, uncomplicated; Y83.3 Surgical operation with formation of external stoma as the cause of abnormal reaction of the patient, or of later complication, without mention of misadventure at the time of the procedure; Z87.440 Personal history of urinary (tract) infections; Z59.00 Homelessness unspecified; Z79.899 Other long term (current) drug therapy; Z20.822 Contact with and (suspected) exposure to COVID-19
CPT/HCPCS: J1650; J1756; J3475; Q9967

== ENCOUNTER 2022-05-12 16:00 | Inpatient (IN) | payer MEDICAID ==
[~2022-05-12] VITALS: Ht 175.3 cm; Wt 40.0 kg
[~2022-05-12 16:00] MED LIST changes: +BACLOFEN10 MG PO; +BISACODYL10 M1 RE; -CLONIDINE0.1 MG PO; +CYCLOBENZAPRINE10 MG PO; +LEXAPRO10 MG PO; +OXYCODO-APAP1 TA2 PO
[2022-05-12 19:00] VITALS: BP 102/71
--- NOTE | 2022-05-12 19:00 | NUR ---
Report received from AM RN. Pt received sitting up in be eating dinner. Pt alert, oriented, no complaints at thid time. Oriented to room, environment and call system. Plan of care reviewed. Call esquivel within reach. Will monitor.
[2022-05-12] MEDS ORDERED: MILK OF MAG30 ML/UDC PO (19:43)
[2022-05-12] MEDS ORDERED: DOCUSATE CAL240 MG PO ×2 (19:45→19:46)
[2022-05-12] MEDS ORDERED: PERCOCET 10/31 COMBO PO (19:51)
--- NOTE | 2022-05-12 21:30 | NUR ---
Pt medicated with percocet po for c/o pain. Will monitor for effect.
--- NOTE | 2022-05-12 22:42 | NUR ---
Pt requesting breakthrough pain med. Medicated with Morphine 1mg IV. Will assess for effect.
--- NOTE | 2022-05-13 01:11 | NUR ---
Pt requesting pain med. Medicated with po percocet. Will monitor for effect.
--- NOTE | 2022-05-13 02:38 | NUR ---
Pt appears to be resting on rounds. Resps even and unlaboured.
[2022-05-13 04:09] VITALS: BP 98/57
--- NOTE | 2022-05-13 05:00 | NUR ---
Leakage noted from around left nephrostomy tube. Drsg removed, site cleansed and new drsg applied. Dressing to RC Port changed. Site clean, dry. No redness, swelling or drainage noted. Pt tolerated same well.
[2022-05-13 06:33] VITALS: BP 105/63
--- NOTE | 2022-05-13 06:37 | NUR ---
Pt medicated for c/o pain. Will assess for effect.
[2022-05-13 07:23] LABS: HEMATOCRIT 26.3 % (37.0-47.0); HEMOGLOBIN 8.2 g/dl (12.0-16.0); IMMATURE GRANULOCYTES 0.4 % (0.0-5.0); MEAN CORPUSCULAR HGB 28.6 pG CALC (26.0-32.0); MEAN CORPUSCULAR HGB CONC 31.2 g/dL CAL (32.0-36.0); NEUT# 9.52 thou/uL (2.00-7.15); RED BLOOD COUNT 2.87 mill/uL (4.20-5.60); RED CELL DISTRI WIDTH 22.9 % (11.5-15.5)
[2022-05-13 07:29] LABS: MEAN CELL VOLUME 91.6 fL CALC (80.0-100.0)
[2022-05-13 07:37] LABS: ALBUMIN 2.1 g/dL (3.2-5.0); ALKALINE PHOSPHATASE 138 u/l (38-126); BUN 12 mg/dL (7-17); BUN/CREATININE RATIO 25 (12-20 (CALC)); CHLORIDE 103 mmol/l (95-108); CREATININE 0.5 mg/dL (0.5-1.0); GFR FOR AFR.AMER. > 60 ML/MIN (>=60 (CALC)); GFR OTHER RACES > 60 ML/MIN (>=60 (CALC)); MAGNESIUM 1.6 mg/dL (1.6-2.3); POTASSIUM 3.9 mmol/l (3.5-5.1); SGOT/AST 15 u/l (14-36); SODIUM 131 mmol/l (137-146); TOTAL PROTEIN 5.1 g/dL (6.3-8.2)
[2022-05-13 07:44] LABS: ANION GAP 11 (6-22 (CALC)); BILIRUBIN, TOTAL 0.1 mg/dL (0.0-1.4); CARBON DIOXIDE 21 mmol/l (22-30)
[2022-05-13 09:35] LABS: URINE BILIRUBIN - DIPSTICK NEGATIVE (NEGATIVE); URINE BLOOD DIPSTICK SMALL (NEGATIVE); URINE CLARITY SL CLOUDY; URINE COLOR YELLOW; URINE GLUCOSE - DIPSTICK NEGATIVE (NEGATIVE); URINE KETONE NEGATIVE (NEGATIVE); URINE LEUK ESTERASE LARGE (Negative); URINE NITRITE - DIPSTICK NEGATIVE (Negative); URINE PROTEIN - DIPSTICK NEGATIVE (NEG-TRACE); URINE SPECIFIC GRAVITY <=1.005; URINE UROBILINOGEN - DIPSTICK 0.2 E.U./dL (0.2)
[2022-05-13 09:44] LABS: URINE RBC 0-2 RBC/hpf (0-5); URINE WBC 20-50 WBC/hpf (0-5)
[2022-05-13 09:45] LABS: URINE BACTERIA MANY hpf
[2022-05-13 11:24] VITALS: BP 93/54
[2022-05-13 16:15] VITALS: BP 89/55
[2022-05-13 18:49] VITALS: BP 102/69
[2022-05-14 03:49] VITALS: BP 99/65
[2022-05-14 05:05] LABS: HEMATOCRIT 21.7 % (37.0-47.0); IMMATURE GRANULOCYTES 0.4 % (0.0-5.0); MEAN CELL VOLUME 93.5 fL CALC (80.0-100.0); MEAN CORPUSCULAR HGB 28.9 pG CALC (26.0-32.0); MEAN CORPUSCULAR HGB CONC 30.9 g/dL CAL (32.0-36.0); NEUT# 8.94 thou/uL (2.00-7.15); RED BLOOD COUNT 2.32 mill/uL (4.20-5.60); RED CELL DISTRI WIDTH 23.3 % (11.5-15.5)
[2022-05-14 05:37] LABS: HEMOGLOBIN 6.7 g/dl (12.0-16.0)
--- NOTE | 2022-05-14 06:57 | NUR ---
SPOKE WITH DR. BARBOUR ABOUT PATIENT HB VALUES. HE WILL ASSESS PATIENT WHEN HE ARRIVES.
[2022-05-14 07:02] VITALS: BP 142/65
[2022-05-14 14:30] VITALS: BP 126/85
[2022-05-14 19:02] VITALS: BP 104/64
[2022-05-15 04:42] VITALS: BP 95/61
[2022-05-15 07:40] LABS: HEMOGLOBIN 8.1 g/dl (12.0-16.0); IMMATURE GRANULOCYTES 0.5 % (0.0-5.0); MEAN CELL VOLUME 97.6 fL CALC (80.0-100.0); MEAN CORPUSCULAR HGB 28.3 pG CALC (26.0-32.0); NEUT# 8.37 thou/uL (2.00-7.15); RED BLOOD COUNT 2.86 mill/uL (4.20-5.60); RED CELL DISTRI WIDTH 23.3 % (11.5-15.5)
[2022-05-15 07:46] LABS: HEMATOCRIT 27.9 % (37.0-47.0)
[2022-05-15 07:52] LABS: BUN 13 mg/dL (7-17); BUN/CREATININE RATIO 33 (12-20 (CALC)); CARBON DIOXIDE 18 mmol/l (22-30); CHLORIDE 105 mmol/l (95-108); CREATININE 0.4 mg/dL (0.5-1.0); GFR FOR AFR.AMER. > 60 ML/MIN (>=60 (CALC)); GFR OTHER RACES > 60 ML/MIN (>=60 (CALC)); SODIUM 130 mmol/l (137-146)
[2022-05-15 07:54] LABS: ANION GAP 12 (6-22 (CALC)); MAGNESIUM 2.4 mg/dL (1.6-2.3)
--- NOTE | 2022-05-15 19:00 | NUR ---
Report received from AM RM. Pt received in bed. No noted complaints at this time. Will continue to monitor.
--- NOTE | 2022-05-15 19:00 | NUR ---
Report received from AM RN. Pt received in bed. O2 in place. No noted complaints at this time. Will monitor.
[2022-05-15 20:06] VITALS: BP 114/68
--- NOTE | 2022-05-15 21:04 | NUR ---
Pt c/o pain. Medicated with percocet . Will monitor for effect.
--- NOTE | 2022-05-15 22:30 | NUR ---
Pt with renewed c/o pain. Medicated with Morphine 1mg IV. Will reassess.
[2022-05-16 03:53] VITALS: BP 103/68
[2022-05-16 07:08] LABS: HEMATOCRIT 23.1 % (37.0-47.0); HEMOGLOBIN 7.1 g/dl (12.0-16.0); IMMATURE GRANULOCYTES 0.5 % (0.0-5.0); MEAN CELL VOLUME 93.1 fL CALC (80.0-100.0); MEAN CORPUSCULAR HGB 28.6 pG CALC (26.0-32.0); MEAN CORPUSCULAR HGB CONC 30.7 g/dL CAL (32.0-36.0); NEUT# 10.75 thou/uL (2.00-7.15); RED BLOOD COUNT 2.48 mill/uL (4.20-5.60); RED CELL DISTRI WIDTH 22.2 % (11.5-15.5)
[2022-05-16 07:32] LABS: BUN 10 mg/dL (7-17); BUN/CREATININE RATIO 24 (12-20 (CALC)); CHLORIDE 103 mmol/l (95-108); CREATININE 0.4 mg/dL (0.5-1.0); GFR FOR AFR.AMER. > 60 ML/MIN (>=60 (CALC)); GFR OTHER RACES > 60 ML/MIN (>=60 (CALC)); POTASSIUM 4.2 mmol/l (3.5-5.1); SODIUM 132 mmol/l (137-146)
[2022-05-16 07:45] LABS: ANION GAP 11 (6-22 (CALC)); CARBON DIOXIDE 22 mmol/l (22-30)
[2022-05-16 14:33] VITALS: BP 106/67
[2022-05-16 16:15] VITALS: BP 106/69
[2022-05-16 19:00] VITALS: BP 109/69
--- NOTE | 2022-05-16 19:00 | NUR ---
Report received from off going RN. Pt received in bed. Awake, alert. No noted complaints.
--- NOTE | 2022-05-16 21:05 | NUR ---
Pt refuses the IV protonix. She feels like it's causing her more pain.
--- NOTE | 2022-05-16 22:08 | NUR ---
Pt crying with c/o severe abdominal pain. Medicated with Morphine 1mg IV. Heating packs given. Will monitor for effect.
[2022-05-17] VITALS (7 sets, daily range): BP systolic 96–109; BP diastolic 60–99
--- NOTE | 2022-05-17 00:22 | NUR ---
Pt c/o severe abdominal pain. Will notify MD as pain meds not due at this time.
--- NOTE | 2022-05-17 00:55 | NUR ---
Pt medicated with percocet 10 mgs po. Will reassess.
[2022-05-17 05:27] LABS: HEMATOCRIT 22.9 % (37.0-47.0); IMMATURE GRANULOCYTES 0.3 % (0.0-5.0); MEAN CELL VOLUME 93.1 fL CALC (80.0-100.0); MEAN CORPUSCULAR HGB CONC 30.1 g/dL CAL (32.0-36.0); NEUT# 9.36 thou/uL (2.00-7.15); RED BLOOD COUNT 2.46 mill/uL (4.20-5.60); RED CELL DISTRI WIDTH 21.3 % (11.5-15.5)
[2022-05-17 05:30] LABS: HEMOGLOBIN 6.9 g/dl (12.0-16.0)
--- NOTE | 2022-05-17 05:36 | NUR ---
Dr. Barragan made aware of critical H/H .. Stated he'd enter orders.
--- NOTE | 2022-05-17 06:13 | NUR ---
Pt medicated for pain this am. Stated to having a small amount vaginal bleeding only. Will monitor.
[2022-05-17 18:41] LABS: HEMATOCRIT 27.5 % (37.0-47.0); HEMOGLOBIN 8.7 g/dl (12.0-16.0)
[2022-05-18 04:12] VITALS: BP 114/76
[2022-05-18 06:50] VITALS: BP 98/57
--- NOTE | 2022-05-18 06:51 | NUR ---
shift supervisor film processing nurse was made aware of patient BP of 98/57 @0645. patient stated she wanted some tylenol for pain, nurse made aware of that as well
[2022-05-18 11:22] VITALS: BP 114/82
[2022-05-18 12:32] LABS: HEMATOCRIT 26.5 % (37.0-47.0); HEMOGLOBIN 8.5 g/dl (12.0-16.0); IMMATURE GRANULOCYTES 0.8 % (0.0-5.0); MEAN CELL VOLUME 90.4 fL CALC (80.0-100.0); MEAN CORPUSCULAR HGB CONC 32.1 g/dL CAL (32.0-36.0); NEUT# 12.97 thou/uL (2.00-7.15); RED BLOOD COUNT 2.93 mill/uL (4.20-5.60); RED CELL DISTRI WIDTH 20.4 % (11.5-15.5)
[2022-05-18 12:56] LABS: ANION GAP 10 (6-22 (CALC)); BUN 8 mg/dL (7-17); BUN/CREATININE RATIO 21 (12-20 (CALC)); CARBON DIOXIDE 23 mmol/l (22-30); CHLORIDE 103 mmol/l (95-108); CREATININE 0.4 mg/dL (0.5-1.0); GFR FOR AFR.AMER. > 60 ML/MIN (>=60 (CALC)); GFR OTHER RACES > 60 ML/MIN (>=60 (CALC)); SODIUM 132 mmol/l (137-146)
[2022-05-18 17:04] VITALS: BP 118/85
[2022-05-18 19:31] VITALS: BP 126/80
--- NOTE | 2022-05-18 19:40 | NUR ---
RECIEVED REPORT ON PATIENT. PT C/O PAIN IN ABDOMEN AND VAGINA. BREATHING EVEN AND NON-LABORED, PT NOT ON OXYGEN. PORT SITE FLUSHED, RUNNING IVF ORDERED. SKIN INTACT. BILATERAL NEPHROSTOMY IN PLACE. WILL RETURN TO GIVE MEDICATIONS. CALL LIGHT IN REACH, ALL SAFETY PRECAUTIONS IN PLACE AT THIS TIME.
--- NOTE | 2022-05-19 00:15 | NUR ---
PT IN BED, BREATHING REMAINS THE SAME. PAIN REPORTED TO HAVE DECREASED AND IS MORE MANAGABLE. PT DENIES ANY OTHER NEEDS AT THIS TIME. CALL LIGHT IN REACH, ALL SAFETY PRECAUTIONS IN PLACE AT THIS TIME.
[2022-05-19 04:00] VITALS: BP 119/81
--- NOTE | 2022-05-19 04:46 | NUR ---
PT IN BED WATCHING TV, BREATHING REMAINS THE SAME. PT REPORTS PAIN HAS IMPROVED. DENIES ANY NEEDS AT THIS TIME. CALL LIGHT IN REACH, ALL SAFETY PRECAUTIONS IN PLACE AT THIS TIME.
[2022-05-19 06:25] VITALS: BP 122/85
[2022-05-19 08:11] LABS: HEMATOCRIT 27.4 % (37.0-47.0); HEMOGLOBIN 8.8 g/dl (12.0-16.0); IMMATURE GRANULOCYTES 0.8 % (0.0-5.0); MEAN CELL VOLUME 90.4 fL CALC (80.0-100.0); MEAN CORPUSCULAR HGB CONC 32.1 g/dL CAL (32.0-36.0); NEUT# 14.92 thou/uL (2.00-7.15); RED BLOOD COUNT 3.03 mill/uL (4.20-5.60)
[2022-05-19 08:32] LABS: ANION GAP 8 (6-22 (CALC)); BUN 7 mg/dL (7-17); BUN/CREATININE RATIO 21 (12-20 (CALC)); CARBON DIOXIDE 24 mmol/l (22-30); CHLORIDE 106 mmol/l (95-108); CREATININE 0.3 mg/dL (0.5-1.0); GFR FOR AFR.AMER. > 60 ML/MIN (>=60 (CALC)); GFR OTHER RACES > 60 ML/MIN (>=60 (CALC)); POTASSIUM 3.9 mmol/l (3.5-5.1); SODIUM 134 mmol/l (137-146)
--- NOTE | 2022-05-19 08:46 | NUR ---
PT A.OX3 ASSESSMENT AND VS COMPLETED. PT C/O CHRONIC PAIN . NS INFUSING. PORT NOTED. PT DENIES PROTONIX STATES MAKES STOMACH HURT. ALL SAFETY PRECAUTIONS IN PLACE WITH CALL LIGHT IN REACH.
[2022-05-19 10:51] LABS: URINE BILIRUBIN - DIPSTICK NEGATIVE (NEGATIVE); URINE BLOOD DIPSTICK NEGATIVE (NEGATIVE); URINE COLOR YELLOW; URINE GLUCOSE - DIPSTICK NEGATIVE (NEGATIVE); URINE KETONE NEGATIVE (NEGATIVE); URINE LEUK ESTERASE TRACE (NEGATIVE); URINE PROTEIN - DIPSTICK NEGATIVE (NEG-TRACE); URINE SPECIFIC GRAVITY 1.025; URINE UROBILINOGEN - DIPSTICK 0.2 E.U./dL (0.2)
[2022-05-19 11:12] LABS: URINE NITRITE - DIPSTICK POSITIVE (Negative)
[2022-05-19 11:13] LABS: URINE RBC 0-2 RBC/hpf (0-5)
[2022-05-19 11:14] LABS: URINE YEAST MODERATE hpf
--- NOTE | 2022-05-19 11:57 | NUR ---
Attempted treatment at 1145, she was with Hospice nurse. Will try later if possible.
--- NOTE | 2022-05-19 12:07 | NUR ---
PT REQUESTED PAIN MEDICATION ,PROVIDED PER EMAR.
[2022-05-19] MEDS ORDERED: CLONIDINE0.1 MG PO (13:14)
[2022-05-19] MEDS ORDERED: DILAUDID IV (13:15)
--- NOTE | 2022-05-19 14:36 | NUR ---
Pt on commode and correctional case records supervisor reported pt was to be picked up at 3pm for transfer to hospice.
--- NOTE | 2022-05-19 16:44 | NUR ---
Discharge instructions given. Patient verbalizes understanding of same. Discharged in stable condition via Medical Transport to *Other with staff. All belongings sent with pt. PORT IN PLACE PATENT.
--- NOTE | 2022-05-20 13:37 | NUR ---
CALLED [facility] SPOKE TO ERIN WAS GIVEN CONFIRMATION NUMBER [id number] FOR WAFER FABRICATION TECHNICIAN OF AIR MATTRESS.
== END 2022-05-19 16:15 | disposition hospice, inpatient (51) | DRG 641 ==
LOC: MS2 16:00
PROVIDERS: Internal Medicine; Nurse Practitioner; ADMIT Internal Medicine; ATTEND Internal Medicine
PROC: 30233N1 Transfusion of Nonautologous Red Blood Cells into Peripheral Vein, Percutaneous Approach (ICD-10-PCS; principal; 2022-05-17)
DX: R62.7 Adult failure to thrive (principal); C78.7 Secondary malignant neoplasm of liver and intrahepatic bile duct; Z68.1 Body mass index [BMI] 19.9 or less, adult; C79.11 Secondary malignant neoplasm of bladder; N39.0 Urinary tract infection, site not specified; T83.512A Infection and inflammatory reaction due to nephrostomy catheter, initial encounter; G89.3 Neoplasm related pain (acute) (chronic); R64 Cachexia; K92.1 Melena; C53.9 Malignant neoplasm of cervix uteri, unspecified; R63.0 Anorexia; T45.1X5A Adverse effect of antineoplastic and immunosuppressive drugs, initial encounter; F06.4 Anxiety disorder due to known physiological condition; F32.A Depression, unspecified; F19.10 Other psychoactive substance abuse, uncomplicated; D64.81 Anemia due to antineoplastic chemotherapy; B96.89 Other specified bacterial agents as the cause of diseases classified elsewhere; Y83.3 Surgical operation with formation of external stoma as the cause of abnormal reaction of the patient, or of later complication, without mention of misadventure at the time of the procedure; Z87.440 Personal history of urinary (tract) infections; Z93.6 Other artificial openings of urinary tract status; Z51.5 Encounter for palliative care
CPT/HCPCS: J1756; P9016; S0164